=== PATIENT | female | born 1945 | race Caucasian/White ===

== ENCOUNTER 2017-08-30 06:06 | Day surgery (SDC) | payer OTHER ==
[2017-08-30] MEDS ORDERED: PHENYLephrine 2.5% 15 ML OPH (06:56)
[2017-08-30] MEDS: TROPICAMIDE 1% 3 ML OPH OPER (06:58)
[2017-08-30] MEDS: PHENYLephrine 2.5% 15 ML OPH OPER (06:58)
[2017-08-30] MEDS ORDERED: BALANCED SALT SOLN OPH IRRIG 500 ML, EPINEPHrine 0.1 MG, GENTAMICIN 4 MG, VANCOMYCIN 10 MG IRR (07:00)
[2017-08-30] MEDS: ACETAMINOPHEN 500 MG TAB PO (07:00)
[2017-08-30] MEDS: TETRACAINE 0.5% 4 ML OPH OPER (07:02)
[2017-08-30] MEDS ORDERED: FENTAnyl 50 MCG/ML VIAL IV ×3 (08:00)
[2017-08-30] MEDS ORDERED: ONDANSETRON 4 MG INJ IV (08:00)
[2017-08-30] MEDS ORDERED: LABETALOL HCL 20MG INJ IV (08:00)
[2017-08-30] MEDS ORDERED: hydrALAzine 20 MG INJ IV (08:00)
[2017-08-30] MEDS ORDERED: MIDAZOLAM 1 MG/ML 2 ML INJ (08:42)
[2017-08-30] MEDS ORDERED: FENTAnyl 50 MCG/ML VIAL (08:42)
[2017-08-30] MEDS ORDERED: TOBRAMYCIN/DEXAMETH 2.5 ML OPH (08:51)
[2017-08-30] MEDS ORDERED: DEXAMETHASONE 0.1% 5 ML OPH (09:00)
[2017-08-30] MEDS: DEXAMETHASONE 0.1% 5 ML OPH LEFT EYE (09:13)
[2017-08-30] MEDS: LIDOCAINE 4% (MPF) 5 ML INJ INJ (09:13)
[2017-08-30] MEDS: TOBRAMYCIN 0.3% 5 ML OPH (09:16)
== END 2017-08-30 11:01 | disposition home or self-care (01) ==
LOC: SDS 06:06
DX: H25.12 Age-related nuclear cataract, left eye (principal); E78.5 Hyperlipidemia, unspecified; I10 Essential (primary) hypertension; E11.9 Type 2 diabetes mellitus without complications
CPT/HCPCS: 66984; 82962

== ENCOUNTER 2018-02-08 08:27 | Day surgery (SDC) | payer MEDICARE, OTHER ==
[2018-02-08] MEDS ORDERED: BALANCED SALT SOLN OPH IRRIG 500 ML, EPINEPHrine 0.1 MG, GENTAMICIN 4 MG, VANCOMYCIN 10 MG IRR (09:00)
[2018-02-08] MEDS ORDERED: LIDOCAINE 4% (MPF) 5 ML INJ INJ (09:00)
[2018-02-08] MEDS: PHENYLephrine 2.5% 15 ML OPH OPER (09:49)
[2018-02-08] MEDS: TETRACAINE 0.5% 4 ML OPH OPER (09:49)
[2018-02-08] MEDS: TROPICAMIDE 1% 3 ML OPH OPER (09:50)
[2018-02-08] MEDS: ACETAMINOPHEN 500 MG TAB PO (09:57)
[2018-02-08] MEDS ORDERED: HYDROmorphONE 1 MG/5 ML IV SYRINGE IV ×2 (11:00)
[2018-02-08] MEDS ORDERED: FENTAnyl 50 MCG/ML VIAL IV ×2 (11:00)
[2018-02-08] MEDS ORDERED: ONDANSETRON 4 MG INJ IV (11:00)
[2018-02-08] MEDS ORDERED: METOCLOPRAMIDE 10 MG INJ IV (11:00)
[2018-02-08] MEDS ORDERED: DIPHENHYDRAMINE 50 MG INJ IV (11:00)
[2018-02-08] MEDS ORDERED: MEPERIDINE 25 MG INJ IV (11:00)
[2018-02-08] MEDS: LIDOCAINE 4% (MPF) 5 ML INJ INJ (11:10)
[2018-02-08] MEDS ORDERED: FENTAnyl 50 MCG/ML VIAL (11:24)
[2018-02-08] MEDS: TOBRAMYCIN/DEXAMETH 3.5 GM OPH OINT RIGHT EYE (11:52)
== END 2018-02-08 14:03 | disposition home or self-care (01) ==
LOC: SDS 08:27
DX: H25.11 Age-related nuclear cataract, right eye (principal); I10 Essential (primary) hypertension; E11.9 Type 2 diabetes mellitus without complications; E78.5 Hyperlipidemia, unspecified
CPT/HCPCS: 66984; 82962